=== PATIENT | female | born 1925 | race Caucasian/White ===

== ENCOUNTER → 2016-08-11 | Outpatient (CLI) | payer MEDICARE ==
[~2016-08-11] MED LIST: 1-ME1LIQ PO; ASPI81 PO; AUGM875T PO; BACT800T5 PO; CALC500T19 PO; CEPH-460 PO; GLUCTAB PO; LEVO100T4 PO; LISI-360 PO; PRAV40TA PO; TAB-TAB PO; VITA-83 PO; VITA400C70 PO
[2016-08-11 14:04] LABS: ANION GAP 5 MEQ/L (5-15); BICARBONATE 28.6 MEQ/L (21.0-32.0); BLOOD UREA NITROGEN 23 MG/DL (7-18); CHLORIDE 99 MEQ/L (98-107); GLOMERULAR FILTRATION RATE 65 ML/MIN (>89); GLUCOSE,FASTING 112 MG/DL (74-99); SODIUM (NA) 133 MEQ/L (136-145)
[2016-08-11 17:06] LABS: HEMOGLOBIN A1a 0.8 %; HEMOGLOBIN A1b 1.7 %; HEMOGLOBIN Ao 84.9 %; HEMOGLOBIN LA1C 2.3 %; HEMOGLOBIN P3 5.3 %
== END ==
LOC: PLAB 09:32
PROVIDERS: ATTEND Family Medicine
DX: E11.21 Type 2 diabetes mellitus with diabetic nephropathy (principal)
CPT/HCPCS: 36415; 80048; 83036

== ENCOUNTER 2016-09-09 13:36 | Emergency (ER) | payer MEDICARE ==
[~2016-09-09] VITALS: Ht 157.5 cm; Wt 53.1 kg
[~2016-09-09 13:36] MED LIST changes: -BACT800T5 PO; -CEPH-460 PO
[2016-09-09 13:37] VITALS: BP 162/70; PULSE 84; RESP 16; TEMP 97.9; O2SAT 97
[2016-09-09] MEDS ORDERED: BACT800T5 PO (14:02)
[2016-09-09] MEDS ORDERED: CEPH-460 PO (14:02)
--- NOTE | 2016-09-09 14:02 | PD ---
HPI Chief Complaint: Injury Time Seen by Provider: 13:54 Travel History International Travel<30 days: No Contact w/Intl Traveler<30days: No Traveled to known affect area: No History of Present Illness HPI An 89-year-old female who presents the emergency department with 4 weeks of a wound on her left lower extremity that she sustained while she was getting in and out of a van and scraped her leg on the running board. She's been washing and applying topical antibiotic ointment but it continues to be somewhat red around it and her family was concerned so they told her to come to the emergency department. She denies any fevers or chills. She does have a history of diabetes. PFSH Past Medical History Hx Anticoagulant Therapy: Yes (BABY ASA DAILY) Arthritis: Yes Cardiovascular Problems: Yes (HTN, CHOL) High Cholesterol: Yes COPD: Yes Diabetes: Yes Diminished Hearing: Yes ([place]) Hypertension: Yes Immunizations Current: Yes Thyroid Disease: Yes ?: Not Menopausal: Yes Past Surgical History Ear Surgery: Yes Other Surgery: Yes (R CARPAL TUNNER, R ROTATOR CUFF) Social History Alcohol Use: Yes (OCCAS. WINE) Tobacco Use: Yes (04/30 PPD) Substance Use: No Allergies-Medications (Allergen,Severity, Reaction): Coded Allergies: No Known Allergies (Verified , 09/09/16) Reported Meds & Prescriptions Reported Meds & Active Scripts Active Augmentin 875 mg Tab (Amoxicillin & Pot Clavulanate 875 mg Tab) 875 Mg Tab 875 Mg PO Q12 7 Days Reported Vitamin E 400 Units Cap 400 Units PO DAILY Vitamin C (Calcium Ascorbate) 500 Mg Tab 500 Mg PO DAILY Calcium 500 Mg Tab 500 Mg PO DAILY Lisinopril 10 mg (Lisinopril) 10 Mg Tab 1 Tab PO DAILY Levothyroxine 100 mcg (Levothyroxine Sodium) 100 Mcg Tab 100 Mcg PO DAILY Aspirin 81 Mg Tab 81 Mg PO DAILY Multivitamin (Multivitamins) 1 Tab Tab 1 Tab PO DAILY Metformin (Metformin HCl) 500 Mg Tab 500 Mg PO DAILY Amlodipine Besylate 10 mg (Amlodipine Besylate) 10 Mg Tab 10 Mg PO DAILY Pravachol 40 Mg Tab 40 Mg PO DAILY Review of Systems Except as stated in HPI: all other systems reviewed are Neg Physical Exam Narrative GENERAL:Well appearing, no acute distress SKIN: 3 cm ulceration with some granulation tissue on the anterior aspect of the distal left tibia with another 3 cm area of erythema and warmth surrounding the wound with no induration or fluctuance. HEAD: Atraumatic. Normocephalic. EYES: Pupils equal and round. No injection or drainage. ENT: Moist mucous membranes NECK: Trachea midline. CARDIOVASCULAR: Regular rate and rhythm. No murmur appreciated. RESPIRATORY: Clear to auscultation. Breath sounds equal bilaterally. GASTROINTESTINAL: Abdomen soft, non-tender, nondistended. MUSCULOSKELETAL: No obvious deformities. NEUROLOGICAL: Awake and alert. No obvious cranial nerve deficits. Moving all extremities. PSYCHIATRIC: Appropriate mood and affect; insight and judgment normal. Data Data Last Documented VS Vital Signs Date Time Temp Pulse Resp B/P Pulse Ox O2 Delivery O2 Flow Rate FiO2 09/09/16 13:37 97.9 84 16 162/70 97 MDM Medical Decision Making Medical Screen Exam Complete: Yes Emergency Medical Condition: Yes Interpretation(s) Afebrile, no tachycardia, hypertensive Differential Diagnosis Wound infection, cellulitis, abscess Narrative Course This is an 89-year-old female who presents to the emergency department with a wound on her left lower extremity that appears to have a superimposed infection. She is a diabetic. I think it's reasonable to put her on oral antibiotic therapy. Otherwise she is nontoxic appearing. She was advised on wound care. Patient will be discharged home. Diagnosis Primary Impression: Wound infection Patient Instructions: General Instructions Additional Instructions: If you develop fever, increasing redness, warmth, or spreading of your infection , or severe pain return to the emergency department immediately as you may require antibiotics through your IV. Complete your course of antibiotics as prescribed. Med/Other Pt SpecificInfo: Prescription(s) given Scripts Sulfamethoxazole-Trimethoprim (Bactrim DS)800-160 Mg Tab1 Tab PO BID #14 TAB Ref 0 Prov:Judith Gomez MD 09/09/16 Cephalexin (Keflex)500 Mg Kam069 Mg PO Q6H 5 Days Ref 0 Prov:Judith Gomez MD 09/09/16 Disposition: 01 DISCHARGE HOME Condition: Stable Judith Gomez MD September 09, 2016 14:02
== END 2016-09-09 14:20 | disposition home or self-care (01) ==
LOC: PHEFT 13:36
DX: L97.229 Non-pressure chronic ulcer of left calf with unspecified severity (principal); E11.622 Type 2 diabetes mellitus with other skin ulcer; I10 Essential (primary) hypertension; E78.00 Pure hypercholesterolemia, unspecified; J44.9 Chronic obstructive pulmonary disease, unspecified; E07.9 Disorder of thyroid, unspecified; F17.200 Nicotine dependence, unspecified, uncomplicated; Z79.82 Long term (current) use of aspirin; Z79.899 Other long term (current) drug therapy
CPT/HCPCS: 99283

== ENCOUNTER → 2016-10-09 | Outpatient (CLI) | payer MEDICARE ==
[~2016-10-09] MED LIST changes: +BACT800T5 PO; +CEPH-460 PO
[2016-10-09 12:58] LABS: HDL CHOLESTEROL 88.7 MG/DL (40.0-60.0); INDIRECT BILIRUBIN 0.3 MG/DL (0.0-0.8); TOTAL BILIRUBIN ADULT 0.4 MG/DL (0.2-1.0)
== END ==
LOC: PLAB 09:23
PROVIDERS: ATTEND Family Medicine
DX: E78.5 Hyperlipidemia, unspecified (principal)
CPT/HCPCS: 36415; 80061; 80076